=== PATIENT | female | born 2000 | race Caucasian/White ===

== ENCOUNTER 2023-04-21 08:44 | Outpatient (OUT) | payer OTHER, SELFPAY ==
--- NOTE | 2023-04-21 08:46 | US_ITS ---
[facility] [place] [id number] Patient Name: NED TERRAZAS MRN: [id number] date: 2000 Sex: F Assigned Patient Location: Current Patient Location: Accession/Order Number: [id number] Exam Date: 04/21/2023 08:46 Report Date: 04/21/2023 17:11 At the request of: MARAL AYERS Procedure: US pelvis w/ transvaginal EXAMINATION: US pelvis w/ transvaginal HISTORY: PELVIC PAIN COMPARISON: No relevant comparison available. FINDINGS: The uterus is retroverted, retroflexed. The uterus is normal in size, contour and myometrial echotexture measuring 7.6 x 4.4 x 4.4 cm. No focal myometrial mass The endometrium measures 3.0 mm, normal The right ovary is normal measuring 4.0 x 1.3 x 3.4 cm. Normal color and Doppler flow. Multiple peripheral follicles The left ovary is normal measuring 3.1 x 1.7 x 2.5 cm. Normal color and Doppler flow. Multiple peripheral follicles No free fluid US/US pelvis w/ transvaginal IMPRESSION: Multiple bilateral ovarian follicles suggestive of polycystic ovarian morphology. Electronically authenticated by: MARISEL MARIE Date: 04/21/2023 17:11
== END 2023-04-21 08:45 | disposition home or self-care (01) ==
LOC: US 08:45
PROVIDERS: PCP Obstetrics & Gynecology; Visit Provider Obstetrics & Gynecology
DX: R10.2 Pelvic and perineal pain (principal)
CPT/HCPCS: 76830; 76856

== ENCOUNTER 2024-08-20 09:04 | Outpatient (OUT) | payer BC, SELFPAY ==
[2024-08-20 09:47] LABS: Basophils Percent Auto 0.4 % (0.2-2.0); Eosinophils Absolute Auto 0.1 10^3/uL (0.0-0.7); Eosinophils Percent Auto 1.1 % (0.9-7.0); Hematocrit 42.3 % (36.0-48.0); Hemoglobin 13.8 g/dL (12.0-16.0); Immature Granulocytes Abs Auto 0.01 10^3/uL (0.00-0.03); Immature Granulocytes Pct Auto 0.2 % (0.0-0.5); Lymphocytes Absolute Auto 1.8 10^3/uL (1.2-3.8); Lymphocytes Percent Auto 34.2 % (20.5-60.0); Mean Corpuscular HGB Conc 32.6 g/dL (29.9-35.2); Mean Corpuscular Volume 85.8 fL (81.0-99.0); Mean Platelet Volume 10.3 fL (9.5-13.5); Monocytes Absolute Auto 0.3 10^3/uL (0.3-0.8); Monocytes Percent Auto 5.6 % (1.7-12.0); Neutrophils Absolute Auto 3.2 10^3/uL (1.4-6.5); Neutrophils Percent Auto 58.5 % (43.0-75.0); Platelet Count 206 10^3/uL (150-450); Red Blood Count 4.93 10^6/uL (4.20-5.40); Red Cell Distribution Width 12.7 % (11.0-15.0); White Blood Count 5.4 10^3/uL (4.0-11.0)
[2024-08-20 10:11] LABS: Estimated Average Glucose 103 mg/dL; Glycohemoglobin A1C 5.2 % (4.5-6.2)
[2024-08-20 10:21] LABS: Chol HDL Ratio 2.7; Cholesterol 182 mg/dL (<=200); HDL Cholesterol 68 mg/dL (40-60); Thyroid Stimulating Hormone 1.082 uIU/mL (0.358-3.740); Triglycerides 50 mg/dL (<=150)
== END 2024-08-20 09:05 | disposition home or self-care (01) ==
LOC: LAB 09:04
PROVIDERS: PCP Family Medicine; Visit Provider Family Medicine
DX: R00.2 Palpitations (principal); E78.5 Hyperlipidemia, unspecified; R53.83 Other fatigue; R73.09 Other abnormal glucose; D64.9 Anemia, unspecified; E03.9 Hypothyroidism, unspecified
CPT/HCPCS: 36415; 80061; 83036; 83540; 84436; 84443; 84481; 85025

== ENCOUNTER 2024-09-22 19:37 | Outpatient (REF) | payer BC, SELFPAY ==
[2024-09-28 09:18] LABS: Age Gdln ACOG Testing Note (.); IGP, rfx Aptima HPV ASCU Note (.)
== END 2024-09-22 19:38 | disposition home or self-care (01) ==
LOC: LAB 19:37
PROVIDERS: PCP Family Medicine; Visit Provider Obstetrics & Gynecology
DX: Z01.419 Encounter for gynecological examination (general) (routine) without abnormal findings (principal)
CPT/HCPCS: 88175

== ENCOUNTER 2024-12-02 12:10 | Outpatient (OUT) | payer BC, SELFPAY ==
[2024-12-02 12:45] LABS: Basophils Percent Auto 0.5 % (0.2-2.0); Eosinophils Absolute Auto 0.2 10^3/uL (0.0-0.7); Hematocrit 43.7 % (36.0-48.0); Hemoglobin 14.5 g/dL (12.0-16.0); Immature Granulocytes Abs Auto 0.02 10^3/uL (0.00-0.03); Immature Granulocytes Pct Auto 0.3 % (0.0-0.5); Lymphocytes Absolute Auto 2.6 10^3/uL (1.2-3.8); Lymphocytes Percent Auto 35.6 % (20.5-60.0); Mean Corpuscular HGB Conc 33.2 g/dL (29.9-35.2); Mean Corpuscular Hemoglobin 28.1 pg (26.7-34.0); Mean Corpuscular Volume 84.7 fL (81.0-99.0); Mean Platelet Volume 10.2 fL (9.5-13.5); Monocytes Absolute Auto 0.5 10^3/uL (0.3-0.8); Monocytes Percent Auto 6.6 % (1.7-12.0); Neutrophils Absolute Auto 4.1 10^3/uL (1.4-6.5); Platelet Count 206 10^3/uL (150-450); Red Blood Count 5.16 10^6/uL (4.20-5.40); Red Cell Distribution Width 13.2 % (11.0-15.0); White Blood Count 7.4 10^3/uL (4.0-11.0)
[2024-12-02 13:40] LABS: Alanine Aminotransferase 23 U/L (14-59); Albumin Globulin Ratio 1.3; Albumin Level 3.9 g/dL (3.4-5.0); Alkaline Phosphatase 94 U/L (46-116); Anion Gap 10.7; Aspartate Amino Transferase 17 U/L (15-37); BUN Creatinine Ratio 13.3; Carbon Dioxide 30.2 mmol/L (21.0-32.0); Chloride 102 mmol/L (98-107); Estimated GFR (African America >60 (>=60 mL/min/1.73m^2); Estimated GFR (Non-African Ame >60 (>=60 mL/min/1.73m^2); Globulin 2.9 g/dL; Glucose 85 mg/dL (74-106); Potassium 3.9 mmol/L (3.5-5.1); Sodium 139 mmol/L (136-145); Total Protein 6.8 g/dL (6.4-8.2)
[2024-12-02 13:41] LABS: HCG Quantitative <1 mIU/mL
== END 2024-12-02 12:11 | disposition home or self-care (01) ==
PROVIDERS: PCP Family Medicine; Visit Provider Family Medicine
DX: E83.19 Other disorders of iron metabolism (principal); N92.6 Irregular menstruation, unspecified
CPT/HCPCS: 36415; 80053; 82728; 83540; 84702; 85025

== ENCOUNTER 2025-04-25 13:29 | Outpatient (RCR) | payer BC, SELFPAY ==
--- OUTSIDE RECORDS SUMMARY | 2025-04-25 13:00 | XMS_ITS | Encounter Summary ---
Author Organization [facility] Address [address] [place] [address] Care Team Providers Care Product Marketing Analyst Name Role Phone Efrain De Santiago MD Primary Care Provider [phone] Reason for Visit * Reason Comments positive test Encounter Details Date Type Department Care Team (Latest Contact Info) Description 04/25/2025 1:00 PM EDT Clinical Support [facility] [address] [place] [address] [place] [address] examination or test, positive result ([facility]); Positive urine test ([facility]) Social History Tobacco Use Types Packs/Day Years Used Date Smoking Tobacco: Never Alcohol Use Standard Drinks/Week Comments Never 0 (1 standard drink = 0.6 oz pur e alcohol) Comments Unknown Sex and Gender Information Value Date Recorded Sex Assigned at Not on file Legal Sex Female 7:03 PM EDT Gender Identity Not on file Sexual Orientation Not on file documented as of this encounter Last Filed Vital Signs Vital Sign Reading Time Taken Comments Blood Pressure 100/60 04/25/2025 1:05 PM EDT Pulse - - Temperature - - Respiratory Rate - - Oxygen Saturation - - Inhaled Oxygen Concentration - - Weight 52.1 kg (114 lb 12.8 oz) 04/25/2025 1:05 PM EDT Height 152.4 cm (5') 04/25/2025 1:05 PM EDT Body Mass Index 22.42 04/25/2025 1:05 PM EDT documented in this encounter Progress Notes * Jillian Chapin LPN - 04/25/2025 1:00 PM EDT Patient seen in office today for complaints of back pain and positive test. Patient UA was negative only should lueks, test was positive. Patient was give HCG level to have drawn and then repeated in 2 days. Patient already has an intake and ultrasound scheduled in office. Patient was advised to keep appointment as Ultrasound will tell us when due as she does not know last LMP. documented in this encounter Plan of Treatment Upcoming Encounters Date Type Department Care Team (Late st Contact Info) Description 05/12/2025 12:30 PM EDT Ancillary Procedure [facility] [address] [place] [address] 05/12/2025 1:00 PM EDT Initial [facility] [address] [place] [address] 09/27/2025 1:00 PM EST Office Visit [facility] [address] [place] [address] Sergey Tolbert DO [address] [place] [address] Scheduled Orders Name Type Priority Associated Diagnoses Orde r Schedule hCG, quantitative, Lab Routine examination or test, positive result ([facility]) Positive urine test ([facility]) 2 Occurrences starting 04/25/2025 until 04/25/2026 documented as of this encounter Procedures Procedure Name Priority Date/Time Associated Diagnosis Comments POCT , URINE Routine 04/25/2025 1:09 PM EDT examination or test, positive result ([facility]) POCT URINALYSIS DIPSTICK Routine 04/25/2025 1:09 PM EDT examination or test, positive result ([facility]) documented in this encounter Results * (ABNORMAL) POCT urinalysis dipstick manually resulted (04/25/2025 1:09 PM EDT) Color, UA Yellow Clarity, UA Clear Glucose, UA Negative Negative - 2000(110) ++++ mg/dL Bilirubin, UA Negative Negative - 4(70) +++ mg/dL Ketones, UA Negative Negative - 160(16) ++++ mg/dL Spec Grav, UA 1.010 1 - 1.03 Blood, UA Negative Negative - 50 Sheldon/mcL pH, UA 60.0 5 - 9 Protein, UA Negative Negative - 2000(20) ++++ mg/dL Urobilinogen, UA 1.0 0.2 - 12 mg/dL Leukocytes, UA Positive Negative - 500+++ Luis Alberto/mcL Nitrite, UA Negative Negative - Positive Urine 04/25/2025 1:09 PM EDT [facility] Didi DO POINT OF CARE TEST ENTER/EDIT OR DERABLES Final Result * (ABNORMAL) POCT , urine manually resulted (04/25/2025 1:09 PM EDT) Preg Test, Ur Positive Negative Urine 04/25/2025 1:09 PM EDT [facility] Didi DO POINT OF CARE TEST ENTER/EDIT OR DERABLES Final Result documented in this encounter Visit Diagnoses Diagnosis examination or test, positive result ([facility]) examination or test, positive result Positive urine test ([facility]) documented in this encounter Care Teams Product Marketing Analyst Relationship Specialty Start Date End Date Efrain De Santiago MD [address] [place] [address] PCP - General Family Medicine 09/22/24 documented as of this encounter
--- OUTSIDE RECORDS SUMMARY | 2025-04-25 13:33 | XMS_ITS | Encounter Summary ---
Author Organization [facility] Address [address] [place] [address] Care Team Providers Care Mattress Specialist Name Role Phone Efrain De Santiago MD Primary Care Provider [phone] Encounter Details Date Type Department Care Team (Late st Contact Info) Description 10/07/2024 Orders Only [facility] [address] [place] [address] Ninfa Lay MA [address] [place] [address] Social History Tobacco Use Types Packs/Day Years [...] on file documented as of this encounter Plan of Treatment Upcoming Encounters Date Type Department Care Team (Late st Contact Info) Description 05/12/2025 12:30 PM EDT [place] [address] 05/12/2025 1:00 PM EDT Initial [facility] [address] [place] [address] 09/27/2025 1:00 PM EST Office Visit [facility] [address] [facility] [phone] Sergey Tolbert DO [address] [place] [address] [place] [address] documented as of this encounter Procedures Procedure Name Priority Date/Time Associated Diagnosis Comments PAP SMEAR Routine 09/22/2024 12:00 AM EST documented in this encounter Results * Pap Smear (09/22/2024 12:00 AM EST) Swab Cervical swab / Unknown us Sergey Tolbert DO LAB CYTOLOGY ORDERABLES Final Re sult EXTERNAL LAB documented in this encounter Visit Diagnoses Not on filedocumented in this encounter Care Teams Mattress Specialist Relationship Specialty Start Date End Date Efrain De Santiago MD [address] [facility] [place] [address] PCP - General Family Medicine 09/22/24 documented as of this encounter
--- OUTSIDE RECORDS SUMMARY | 2025-04-25 13:33 | XMS_ITS | Encounter Summary ---
Author Organization [facility] Address [address] [place] [address] Care Team Providers Care Cell Pourer Name Role Phone Efrain De Santiago MD Primary Care Provider [phone] Encounter Details Date Type Department Care Team (Late st Contact Info) Description 04/21/2023 Clinisync Result Encounter [facility] External Department Unsolicited Maral Tolbert DO [address] [place] [address] Social History Tobacco Use Types Packs/Day Years Used Date Smoking Tobacco: Never Alcohol Use Standard Drinks/Week Comments Never 0 (1 standard drink = 0.6 oz pur e alcohol) Comments Unknown Sex and Gender Information Value Date Recorded Sex Assigned at Not on file Legal Sex Female 7:03 PM EDT Gender Identity Not on file Sexual Orientation Not on file COVID-19 Exposure Response Date Recorded In the last 10 days, have yo u been in contact with someone who was confirmed or suspected to have Coronavirus/COVID-19? No / Unsure 04/14/2023 9:27 AM EDT documented as of this encounter Plan of Treatment Upcoming Encounters Date Type Department Care Team (Late st Contact Info) Description 05/12/2025 12:30 PM EDT Ancillary Procedure [facility] [address] [place] [phone] 05/12/2025 1:00 PM EDT Initial [facility] [address] [place] [address] 09/27/2025 1:00 PM EST Office Visit [facility] [address] [place] [address] Maral Tolbert DO [address] [facility] [address] [place], [place] [id number] documented as of this encounter Procedures Procedure Name Priority Date/Time Associated Diagnosis Comments US PELVIS W/ TRANSVAGINAL 04/21/2023 5:11 PM EDT documented in this encounter Results * US PELVIS W/ TRANSVAGINAL (04/21/2023 5:11 PM EDT) Anatomical Region Laterality Modality Other 04/21/2023 5:11 PM EDT Narrative 04/21/2023 5:11 PM EDT [address] [address] Ultrasound Report Signed Patient: Ned Terrazas MR#: [id number] : 2000 Acct:[id number] Age/Sex: 22 / F ADM Date: 04/21/23 Loc: US Attending Dr: Maral Tolbert D.O. Ordering Physician: Maral Tolbert D.O. Date of Service: 04/21/23 Procedure(s): US pelvis w/ transvaginal Accession Number(s): [id number] cc: Maral Tolbert D.O. The [address] [address] Patient Name: NED TERRAZAS MRN: [id number] date: 2000 Sex: F Assigned Patient Location: US Current Patient Location: US Accession/Order Number: [id number] Exam Date: 04/21/2023 08:46 Report Date: 04/21/2023 17:11 At the request of: MARAL TOLBERT Procedure: US pelvis w/ transvaginal EXAMINATION: US pelvis w/ transvaginal HISTORY: PELVIC PAIN COMPARISON: No relevant comparison available. FINDINGS: The uterus is retroverted, retroflexed. The uterus is normal in size, contour and myometrial echotexture measuring 7.6 x 4.4 x 4.4 cm. No focal myometrial mass The endometrium measures 3.0 mm, normal The right ovary is normal measuring 4.0 x 1.3 x 3.4 cm. Normal color and Doppler flow. Multiple peripheral follicles The left ovary is normal measuring 3.1 x 1.7 x 2.5 cm. Normal color and Doppler flow. Multiple peripheral follicles No free fluid US/US pelvis w/ transvaginal IMPRESSION: Multiple bilateral ovarian follicles suggestive of polycystic ovarian morphology. Electronically authenticated by: MARISEL MARIE Date: 04/21/2023 17:11 Dictated By: Marisel Marie M.D. Signed By: 04/21/231713 DD/ 10 TD/TT: Respiratory Manager: Procedure Note Radiology, Radiologist, MD - 05/02/2023 [place] [address] Ultrasound Report Signed Patient: Ned Terrazas EMR#: [id number] : 2000Acct:[id number] Age/Sex: 22 / FADM Date: 04/21/23 Loc: US Attending Dr: Maral Tolbert D.O. Ordering Physician: Maral Tolbert D.O. Date of Service: 04/21/23 Procedure(s): US pelvis w/ transvaginal Accession Number(s): [id number] cc: Maral Tolbert D.O. The [address] [address] Patient Name: NED TERRAZAS MRN: [id number] date: 2000 Sex: F Assigned Patient Location: US Current Patient Location: US Accession/Order Number: [id number] Exam Date: 04/21/2023 08:46 Report Date: 04/21/2023 17:11 At the request of: MARAL TOLBERT Procedure: US pelvis w/ transvaginal EXAMINATION: US pelvis w/ transvaginal HISTORY: PELVIC PAIN COMPARISON: No relevant comparison available. FINDINGS: The uterus is retroverted, retroflexed. The uterus is normal in size,contour and myometrial echotexture measuring 7.6 x 4.4 x 4.4 cm. No focalmyometrial mass The endometrium measures 3.0 mm, normal The right ovary is normal measuring 4.0 x 1.3 x 3.4 cm. Normal color and Doppler flow. Multiple peripheral follicles The left ovary is normal measuring 3.1 x 1.7 x 2.5 cm. Normal color and Doppler flow. Multiple peripheral follicles No free fluid US/US pelvis w/ transvaginal IMPRESSION: Multiple bilateral ovarian follicles suggestive of polycystic ovarian morphology. Electronically authenticated by: MARISEL MARIE Date: 04/21/2023 17:11 Dictated By: Marisel Marie M.D. Signed By:04/21/231713 DD/ 10 TD/TT: Respiratory Manager: us Maral Tolbert DO [facility] Final Result documented in this encounter Visit Diagnoses Not on filedocumented in this encounter Care Teams Cell Pourer Relationship Specialty Start Date End Date Efrain De Santiago MD [address] [place] [address] PCP - General Family Medicine 09/22/24 documented as of this encounter
--- OUTSIDE RECORDS SUMMARY | 2025-04-25 13:33 | XMS_ITS | Clinical Summary ---
Author Organization [facility] Healthcare Address [address] [place] [address] Care Team Providers Care Ornamental Iron Erector Name Role Phone Efrain De Santiago MD Primary Care Provider [phone] Allergies No known active allergies Medications norgestimate-et hinyl estradiol (Sprintec 28) 0.25-35 MG-MCG tabletIndicatio ns:Abnormal uterine bleeding (AUB) Take 1 tablet by mouth Daily 28 tablet 11 4 04/25/20 25 Discontinued desvenlafaxine (Pristiq) 50 MG 24 hr tablet TAKE 1 TABLET BY MOUTH EVERY DAY FOR 30 DAYS 5 04/25/20 25 Discontinued Encounters Date Type Department Care Team Description 04/25/2025 1:00 PM EDT Clinical Support [facility] [address] [place] [address] [place] [phone] examination or test, positive result ([facility]); Positive urine test ([facility]) from Last 3 Months Family History Medical History Relation Name Comments Hypertension Father Cancer Mother H/O blood clot Mother No Known Problems Sibling H/O stomach hernia Sister h/o stomach ulcers Sister Relation Name Status Comments Father Alive Mother Alive Sibling Alive Sister Social History Tobacco Use Types Packs/Day Years Used Date Smoking Tobacco: Never Tobacco Cessation:Counseling Given: Not Answered Alcohol Use Standard Drinks/Week Comments Never 0 (1 standard drink = 0.6 oz pur e alcohol) Comments Unknown Sex and Gender Information Value Date Recorded Sex Assigned at Not on file Legal Sex Female 7:03 PM EDT Gender Identity Not on file Sexual Orientation Not on file Last Filed Vital Signs Vital Sign Reading Time Taken Comments Blood Pressure 100/60 04/25/2025 1:05 PM EDT Pulse - - Temperature - - Respiratory Rate - - Oxygen Saturation - - Inhaled Oxygen Concentration - - Weight 52.1 kg (114 lb 12.8 oz) 04/25/2025 1:05 PM EDT Height 152.4 cm (5') 04/25/2025 1:05 PM EDT Body Mass Index 22.42 04/25/2025 1:05 PM EDT Plan of Treatment Upcoming Encounters Date Type Department Care Team (Late st Contact Info) Description 05/12/2025 12:30 PM EDT [place] [phone] 05/12/2025 1:00 [place] [address] 09/27/2025 1:00 PM EST [place] [phone] Sergey Tolbert DO [facility] [address] [address] Procedures Procedure Name Priority Date/Time Associated Diagnosis Comments POCT URINALYSIS DIPSTICK Routine 04/25/2025 1:09 PM EDT examination or test, positive result ([facility]) POCT , URINE Routine 04/25/2025 1:09 PM EDT examination or test, positive result ([facility]) from Last 3 Months Results * (ABNORMAL) POCT , urine manually resulted (04/25/2025 1:09 PM EDT) Preg Test, Ur Positive Negative Urine 04/25/2025 1:[address] [facility] DO POINT OF CARE TEST ENTER/EDIT OR DERABLES Final Result * (ABNORMAL) POCT urinalysis dipstick manually resulted (04/25/2025 1:09 PM EDT) Color, UA Yellow Clarity, UA Clear Glucose, UA Negative Negative - 1999(110) ++++ mg/dL Bilirubin, UA Negative Negative - 4(70) +++ mg/dL Ketones, UA Negative Negative - 160(16) ++++ mg/dL Spec Grav, UA 1.010 1 - 1.03 Blood, UA Negative Negative - 50 Sheldon/mcL pH, UA 60.0 5 - 9 Protein, UA Negative Negative - 1999(20) ++++ mg/dL Urobilinogen, UA 1.0 0.2 - 12 mg/dL Leukocytes, UA Positive Negative - 500+++ Luis Alberto/mcL Nitrite, UA Negative Negative - Positive Urine 04/25/2025 1:09 PM EDT [facility] DO POINT OF CARE TEST ENTER/EDIT OR DERABLES Final Result from Last 3 Months Insurance [facility] Care Teams Ornamental Iron Erector Relationship Specialty Start Date End Date Efrain De Santiago MD [address] [place] [phone] PCP - General Family Medicine 09/22/24
== END 2025-05-11 08:06 | disposition home or self-care (01) ==
LOC: LAB 13:29
PROVIDERS: PCP Family Medicine; Visit Provider Obstetrics & Gynecology
DX: Z51.81 Encounter for therapeutic drug level monitoring (principal); Z32.01 Encounter for pregnancy test, result positive
CPT/HCPCS: 36415; 84702

== ENCOUNTER 2025-05-12 11:53 | Outpatient (OUT) | payer BC, SELFPAY ==
--- NOTE | 2025-05-12 11:56 | US_ITS ---
[place] [id number] Patient Name: NED GARCIA MRN: [id number] date: 2000 Sex: F Assigned Patient Location: US Current Patient Location: US Accession/Order Number: [id number] Exam Date: 05/12/2025 12:00 Report Date: 05/13/2025 13:08 At the request of: MARAL AYERS DO Procedure: US OB transvaginal OB ultrasound. Reason for exam:Positive test. Comparison:None Technique: Transvaginal imaging of the gravid uterus was obtained. Findings: Single live intrauterine measuring 9 weeks 0 days by CRL MICHELLE 12/15/2025. heart rate 176 bpm. No free fluid is seen. Ovaries appear unremarkable. US/US OB transvaginal Impression: Single live intrauterine 9 weeks 0 days by CRL, MICHELLE 12/15/2025. Impression dictated by: John Lassiter Jr. DSebastiánOSebastián 05/13/2025 1:08 PM Dictation Location: [place] [address] Electronically authenticated by: [id number] Date: 05/13/2025 13:08
== END 2025-05-12 11:54 | disposition home or self-care (01) ==
LOC: US 11:53
PROVIDERS: PCP Family Medicine; Visit Provider Obstetrics & Gynecology
DX: Z34.01 Encounter for supervision of normal first pregnancy, first trimester (principal); Z3A.09 9 weeks gestation of pregnancy; N92.6 Irregular menstruation, unspecified
CPT/HCPCS: 36415; 76817; 80307; 83036; 85025; 86592; 86762; 86803; 86850; 86900; 86901; 87086; 87340; 87389

== ENCOUNTER 2025-05-12 13:34 | Outpatient (OUT) | payer BC, SELFPAY ==
--- OUTSIDE RECORDS SUMMARY | 2025-05-12 13:00 | XMS_ITS | Encounter Summary ---
Author Organization [facility] Address [address] [place] [address] Care Team Providers Care Steam Brush Operator Name Role Phone Efrain De Santiago MD Primary Care Provider [phone] Reason for Visit * Reason Comments Amenorrhea Encounter Details Date Type Department Care Team (Late st Contact Info) Description 05/12/2025 1:00 PM EDT Initial [facility] [address] [place] [address] [place] [phone] [place]: 9w0d Social History Tobacco Use Types Packs/Day Years Used Date Smoking Tobacco: Never Alcohol Use Standard Drinks/Week Comments Never 0 (1 standard drink = 0.6 oz pur e alcohol) Estimated Date of Delivery Comme nts Yes 12/15/2025 Based on last me nstrual period of 03/10/2025 Sex and Gender Information Value Date Recorded Sex Assigned at Not on file Legal Sex Female 7:03 PM EDT Gender Identity Not on file Sexual Orientation Not on file documented as of this encounter Last Filed Vital Signs Vital Sign Reading Time Taken Comments Blood Pressure 110/60 05/12/2025 1:15 PM EDT Pulse - - Temperature - - Respiratory Rate - - Oxygen Saturation - - Inhaled Oxygen Concentration - - Weight 53.2 kg (117 lb 3.2 oz) 05/12/2025 1:15 P M EDT Height - - Body Mass Index 22.89 04/25/2025 1:05 PM EDT documented in this encounter Progress Notes * Jillian Chapin, AEROSPACE PROJECT ENGINEER - 05/12/2025 1:00 PM EDT Reason for Appointment: Patient ID: Zayra Gill is a 24 y.o. female who presents for Amenorrhea Patient presents today for a Nurse OB Intake appointment. Patient is 9w0d with a Estimated Date of Delivery: 12/15/25 OB History Para Term AB Living 2 1 1 0 0 1 SAB IAB Ectopic Multiple Live Births 0 0 0 0 1 # Outcome Date GA Lbr Fabian/2nd Weight Sex Type Anes PTL Lv 2 Current 1 Term 07/01/22 8 lb F Vag-Spont DANILO Current Medications: has a current medication list which includes the following prescription(s): metronidazole and mv-min-fe fum-fa-dha. Medical History: Active Ambulatory Problems Diagnosis Date Noted No Active Ambulatory Problems Resolved Ambulatory Problems Diagnosis Date Noted No Resolved Ambulatory Problems Past Medical History: Diagnosis Date ADHD (attention deficit hyperactivity disorder) Marginal placenta previa ([facility]) Family History Problem Relation Name Age of Onset Cancer Mother Other (H/O blood clot) Mother Hypertension Father Other (h/o stomach ulcers) Sister Other (H/O stomach hernia) Sister No Known Problems Sibling Social History Tobacco Use Smoking status: Never Smokeless tobacco: Not on file Substance Use Topics Alcohol use: Never Drug use: Not on file Past Surgical History: Procedure Laterality Date APPENDECTOMY 2013 INNER EAR SURGERY tubes in ears No Known Allergies Vitals: Estimated body mass index is 22.89 kg/m?? as calculated from the following: Height as of 04/25/25: 5'. Weight as of this encounter: 117 lb 3.2 oz. BP: 110/60 Patient's last menstrual period was 03/10/2025. Assessment/Plan Diagnoses and all orders for this visit: Missed menses - Type and screen; Future - ABO/Rh; Future - CBC and differential - Hemoglobin A1c - RPR - Rubella antibody, IgG - Hepatitis B surface antigen - Hepatitis C antibody - HIV-1 and HIV-2 antibodies - Urine culture - POCT , urine manually resulted - POCT urinalysis dipstick manually resulted , unspecified gestational age ([facility]) - Type and screen; Future - ABO/Rh; Future - CBC and differential - Hemoglobin A1c - RPR - Rubella antibody, IgG - Hepatitis B surface antigen - Hepatitis C antibody - HIV-1 and HIV-2 antibodies - Rapid drug screen, urine; Future Encounter for supervision of normal first in first trimester ([facility]) - Rapid drug screen, urine; Future Nurse Note: OB Intake: Patient presents today for first OB visit. Patients history has been reviewed in great detail including any potential risks. Patient signed consent forms and patient desires testing in both trimesters. Patient currently has no complaints and has been advised to drink 6-8 glasses of water a day, eatno raw or undercooked meat, and stay away from [facility]. Patient has also been advised to not change litter boxes and eat 6 small meals a day. Patient has been consulted regarding the do's and don'ts ofpregnancy. Patient was given labs and all questions and concerns were answered. Patient was given [place] to have completed. Follow Up: Patient is to return in 4 weeks for routine OB appointment. Follow Up: Patient is to have labs drawn at directed and return to office for initial OB appointment with provider. Patient may call office as needed with any concerns or questions. Nurse Visit Completed by: Jillian Chapin LPN documented in this encounter Plan of Treatment Upcoming Encounters Date Type Department Care Team (Late st Contact Info) Description 06/14/2025 1:20 PM EST Routine [facility] [address] [place] [phone] Sergey Tolbert DO [address] [place] [address] 09/27/2025 1:00 PM EST Office Visit [facility] [address] [place] [phone] Sergey Tolbert DO [address] [place] [address] Scheduled Orders Name Type Priority Associated Diagnoses Orde r Schedule Type and screen Lab Routine Missed menses , unspecified gestational age ([facility]) Expected: 05/12/2025 (Approximate), Expires: 05/12/2026 ABO/Rh Lab Routine Missed menses , unspecified gestational age ([facility]) Expected: 05/12/2025 (Approximate), Expires: 05/12/2026 CBC and differential Lab Routine Missed menses , unspecified gestational age ([facility]) Ordered: 05/12/2025 Hemoglobin A1c Lab Routine Missed menses , unspecified gestational age ([facility]) Ordered: 05/12/2025 RPR Lab Routine Missed menses , unspecified gestational age ([facility]) Ordered: 05/12/2025 Rubella antibody, IgG Lab Routine Missed menses , unspecified gestational age ([facility]) Ordered: 05/12/2025 Hepatitis B surface antigen Lab Routine Missed menses , unspecified gestational age ([facility]) Ordered: 05/12/2025 Hepatitis C antibody Lab Routine Missed menses , unspecified gestational age ([facility]) Ordered: 05/12/2025 HIV-1 and HIV-2 antibodies Lab Routine Missed menses , unspecified gestational age ([facility]) Ordered: 05/12/2025 Urine culture Microbiology Routine Missed menses Ordered: 05/12/2025 Rapid drug screen, urine Lab Routine , unspecified gestational age ([facility]) Encounter for supervision of normal first in first trimester ([facility]) Expected: 05/12/2025 (Approximate), Expires: 05/12/2026 documented as of this encounter Procedures Procedure Name Priority Date/Time Associated Diagnosis Comments POCT , URINE Routine 05/12/2025 1:03 PM EDT Missed menses POCT URINALYSIS DIPSTICK Routine 05/12/2025 1:02 PM EDT Missed menses documented in this encounter Results * (ABNORMAL) POCT , urine manually resulted (05/12/2025 1:03 PM EDT) Preg Test, Ur Positive Negative Urine 05/12/2025 1:03 PM EDT Sergey Didi DO POINT OF CARE TEST ENTER/EDIT OR DERABLES Final Result * (ABNORMAL) POCT urinalysis dipstick manually resulted (05/12/2025 1:02 PM EDT) Color, UA Yellow Clarity, UA Clear Glucose, UA Negative Negative - 1999(110) ++++ mg/dL Bilirubin, UA Negative Negative - 4(70) +++ mg/dL Ketones, UA Negative Negative - 160(16) ++++ mg/dL Spec Grav, UA 1.010 1 - 1.03 Blood, UA Negative Negative - 50 Sheldon/mcL pH, UA 6.0 5 - 9 Protein, UA Negative Negative - 1999(20) ++++ mg/dL Urobilinogen, UA 1.0 0.2 - 12 mg/dL Leukocytes, UA Positive Negative - 500+++ Luis Alberto/mcL Nitrite, UA Negative Negative - Positive Urine 05/12/2025 1:02 PM EDT Sergey Didi DO POINT OF CARE TEST ENTER/EDIT OR DERABLES Final Result documented in this encounter Visit Diagnoses Diagnosis Missed menses , unspecified gestational age ([facility]) Encounter for supervision of normal first in first trimester ([facility]) documented in this encounter Care Teams Steam Brush Operator Relationship Specialty Start Date End Date Efrain De Santiago MD [address] [place] [phone] PCP - General Family Medicine 09/22/24 documented as of this encounter
--- OUTSIDE RECORDS SUMMARY | 2025-05-12 13:40 | XMS_ITS | Clinical Summary ---
Author Organization [facility] Address [address] [place] [address] Care Team Providers Care Rock Crusher Operator Name Role Phone Efrain De Santiago MD Primary Care Provider [phone] Allergies No known active allergies Medications metroNIDAZOLE (Flagyl) 500 MG tabletIndicati ons:Vaginal discharge Take 1 tablet (500 mg) by mouth in the morning and 1 tablet (500 mg) before bedtime. Do all this for 7 days. Do not drink alcohol while taking this medication. 14 tablet 5 05/17/20 25 Active MV-Min-Fe Fum-FA-DHA ( 1 PO) Take 1 each by mouth Daily Active norgestimate-e thinyl estradiol (Sprintec 28) 0.25-35 MG-MCG tabletIndicati ons:Abnormal uterine bleeding (AUB) Take 1 tablet by mouth Daily 28 tablet 11 4 04/25/20 25 Discontinued desvenlafaxine (Pristiq) 50 MG 24 hr tablet TAKE 1 TABLET BY MOUTH EVERY DAY FOR 30 DAYS 5 04/25/20 25 Discontinued valACYclovir (Valtrex) 500 MG tablet 1 tablet Orally three times daily; Duration: 7 days 5 05/12/20 25 Discontinued Encounters Date Type Department Care Team Description 05/12/2025 1:00 PM EDT Initial [facility] [place] [phone] [place]: 9w0d 05/10/2025 [place] [address] Jolie Lomeli MA 05/07/2025 Travel 04/27/2025 Clinisync Result Encounter [facility] External Department Unsolicited Sergey Tolbert DO 04/25/2025 1:00 PM EDT Clinical Support [facility] [phone] examination or test, positive result ([facility]); Positive urine test ([facility]) 04/25/2025 Clinisync Result Encounter NOM[facility] External Department Unsolicited Sergey Tolbert DO from Last 3 Months Family History Medical [...] oz) 05/12/2025 1:15 P M EDT Height 152.4 cm (5') 04/25/2025 1:05 PM EDT Body Mass Index 22.89 04/25/2025 1:05 PM EDT Plan of Treatment Upcoming Encounters Date Type Department Care Team (Late st Contact Info) Description 06/14/2025 1:20 PM EST Routine [facility] [address] [facility] [place] [phone] Sergey Tolbert [address] [facility] [place] [address] 09/27/2025 1:00 PM EST Office Visit [facility] [address] [facility] [place] [phone] Sergey Tolbert [address] [facility] [place] [address] Procedures Procedure Name Priority Date/Time Associated Diagnosis Comments POCT , URINE Routine 05/12/2025 1:03 PM EDT Missed menses POCT URINALYSIS DIPSTICK Routine 05/12/2025 1:02 PM EDT Missed menses [facility] PREG QUANT HCG Routine 04/27/2025 10 :49 AM EDT [facility] PREG QUANT HCG Routine 04/25/2025 1: 43 PM EDT POCT URINALYSIS DIPSTICK Routine 04/25/2025 1:09 PM EDT examination or test, positive result ([facility]) POCT , URINE Routine 04/25/2025 1:09 PM EDT examination or test, positive result ([facility]) from Last 3 Months Results * (ABNORMAL) POCT , urine manually resulted (05/12/2025 1:03 PM EDT) Only the most recent of2 resultswithin the time period is included. Preg Test, Ur Positive Negative Urine 05/12/2025 1:03 PM EDT Sergey Didi DO POINT OF CARE TEST ENTER/EDIT OR DERABLES Final Result * (ABNORMAL) POCT urinalysis dipstick manually resulted (05/12/2025 1:02 PM EDT) Only the most recent of2 resultswithin the time period is included. Color, UA Yellow Clarity, UA Clear Glucose, [...] TEST ENTER/EDIT OR DERABLES Final Result * [facility] PREG QUANT HCG (04/27/2025 10:49 AM EDT) Only the most recent of2 resultswithin the time period is included. HCG QUANTITATIVE 43,354 mIU/mL TB Comment: 5-50 0.2-1 WEEK 50-500 1-2 WEEKS 100-5,000 2-3 WEEKS 500-10,000 3-4 WEEKS 1,000-50,000 4-5 WEEKS 10,000-100,000 5-6 WEEKS 15,000-200,000 6-8 WEEKS 10,000-100,000 2-3 MONTHS 04/27/2025 10:4 9 AM EDT 04/27/2025 10:51 AM EDT Narrative [facility] - 04/27/2025 11:55 AM EDT Sergey Didi DO CL[facility]IS[facility] Final Result [facility] from Last 3 Months Insurance [employer] Care Teams Rock Crusher Operator Relationship Specialty Start Date End Date Efrain De Santiago MD [address] [place] [phone] PCP - General Family Medicine 09/22/24
--- OUTSIDE RECORDS SUMMARY | 2025-05-12 13:40 | XMS_ITS | Encounter Summary ---
Author Organization [facility] Address [address] [place] [address] Care Team Providers Care Serger Name Role Phone Efrain De Santiago MD Primary Care Provider [phone] Encounter Details Date Type Department Care Team (Latest Contact Info) Description 05/07/2025 Travel Social History Tobacco Use Types Packs/Day Years [...] Description 06/14/2025 1:20 PM EST Routine [facility] [address] [place] [address] Sergey Tolbert, DO [address], [facility] 09/27/2025 1:00 PM EST Office Visit [facility] [address] [place] [address] Sergey Tolbert, DO [address] [place] [address] documented as of this encounter Visit Diagnoses Not on filedocumented in this encounter Care Teams Serger Relationship Specialty Start Date End Date Efrain De Santiago MD [address] [place] [address] PCP - General Family Medicine 09/22/24 documented as of this encounter
--- OUTSIDE RECORDS SUMMARY | 2025-05-12 13:40 | XMS_ITS | Patient Health Record ---
Author Organization [facility] in [place] Address [address] [place] [address] Care Team Providers Care Fire Extinguisher Sprinkler Inspector Name Role Phone Dinh De Santiago Primary Care Provider Allergies Allergen (clinical drug ingredient) Drug/Non Drug Allergy documented on EMR Reaction Allergy Type Onset Date Status sulfamethoxazole / trimethoprim Bactrim Unknown Drug Allergy Active Results Component Value Reference Range Notes FERRITIN Reviewed date:12/02/2024 06:59:38 PM Interpretation: Performing Lab: Notes/Report: [facility] , Ferritin 74.0 8.0-252.0 ng/mL Performing Lab: see note ML - [facility] PREG QUANT HCG Reviewed date:12/02/2024 06:59:38 PM Interpretation: Performing Lab: Notes/Report: [facility] , HCG Quantitative <1 15,000-200,000 6-8 WEEKS 10,000-100,000 2-3 MONTHS 500-10,000 3-4 WEEKS 5-50 0.2-1 WEEK 10,000-100,000 5-6 WEEKS 100-5,000 2-3 WEEKS 1,000-50,000 4-5 WEEKS 50-500 1-2 WEEKS Performing Lab: see note ML - [facility] GLYCOHEMOGLOBIN A1C Reviewed date:08/22/2024 09:45:56 AM Interpretation: Performing Lab: Notes/Report: [facility] , Glycohemoglobin A1C 5.2 4.5-6.2 % ACTION SUGGESTED ADA RECOMMENDED LIMIT 4.0 - 6.0 > 7.0 ADA THERAPEUTIC TARGET < 7.0 Estimated Average Glucose 103 Performing Lab: see note ML - [facility] LB IRON Reviewed date:08/22/2024 09:45:56 AM Interpretation: Performing Lab: Notes/Report: [facility] , Iron 198.0 50.0-170.0 ug/dL Performing Lab: see note ML - [facility] LB LIPID PROFILE Reviewed date:08/22/2024 09:45:56 AM Interpretation: Performing Lab: Notes/Report: [facility] , Triglycerides 50 <=150 mg/dL Cholesterol 182 <=200 mg/dL HDL Cholesterol 68 40-60 mg/dL > or =60 mg/dl - LOW CARDIOVASCULAR RISK <40 mg/dl - HIGH CARDIOVASCULAR RISK LDL Cholesterol Calculated 104.0 130-159 mg/dl BORDERLINE HIGH >190 mg/dl VERY HIGH 160-189 mg/dl HIGH <100 mg/dl OPTIMAL 100-129 mg/dl NEAR OR ABOVE OPTIMAL VLDL CHOLESTEROL 10.0 Chol HDL Ratio 2.7 4.4 - 7.1 AVERAGE RISK 7.1 - 11.0 MODERATE RISK 3.3 - 4.4 LOW RISK >11.0 HIGH RISK Performing Lab: see note ML - [facility] LB T4 Reviewed date:08/22/2024 09:45:56 AM Interpretation: Performing Lab: Notes/Report: [facility] , T4 Thyroxine 11.20 4.80-13.90 ug/dL Performing Lab: see note ML - [facility] LB TSH Reviewed date:08/22/2024 09:45:56 AM Interpretation: Performing Lab: Notes/Report: [facility] , Thyroid Stimulating Hormone 1.082 0.358-3.740 u IU/mL Performing Lab: see note ML - [facility] LB IGP,Aptima HPV,Age Gdln Reviewed date:09/28/2024 08:36:01 PM Interpretation: Performing Lab: Notes/Report: BRUSH-SPATULA CERVIX ENDOCERVIX [facility] , Age Gdln ACOG Testing Note . L-Low Normal,H-High Normal,LL-Alert Low,HH-Alert High FLAG LEGEND: [address] [place] [address] [place] [address] Clinician Provided Cytology Information Verenice Wadsworth MD, Ayaka Godoy ACLEONEL Soheila... 21-29 01 TESTS RESULT FLAG UNITS REF RANGE LAB ---- 01 =[facility] Derek Performed at: ---- <-Panic Low,>-Panic High,A-Abnormal,AA-Critical Abnormal No. of containers..01 ThinPrep Vial Source.............Cervix;En docervix ---- IGP, rfx Aptima HPV ASCU Note . Verenice Wadsworth MD, detection of premalignant and malignant conditions of the Training And Development Officer: Verenice Wadsworth MD, Phone: [phone] L-Low Normal,H-High Normal,LL-Alert Low,HH-Alert High Test Methodology: Note 02 cells (endocervical component) are present. Performed at: =[facility] The Pap smear is a screening test designed to aid in the Satisfactory for evaluation. Endocervical and/or squamous metaplastic <-Panic Low,>-Panic High,A-Abnormal,AA-Critical Abnormal ---- Specimen adequacy: [address] [place] [address] [place], [place] [address] FLAG LEGEND: 02 [facility] CELLULAR CHANGES ASSOCIATED WITH INFLAMMATION ARE PRESENT. This liquid based ThinPrep(R) pap test was screened with Note: Note 02 cancer. Both false-positive and false-negative reports do [address] [place] [phone] DIAGNOSIS: Performed by: 02 result therefore, no HPV testing was performed. ---- NEGATIVE FOR INTRAEPITHELIAL LESION OR MALIGNANCY. occur. The HPV DNA reflex criteria were not met with this specimen Performed at: - [facility] Derek Performed at: . 02 [address] [place] [phone] TESTS RESULT FLAG UNITS REF RANGE LAB should not be used as the sole means of detecting cervical the use of an image guided system. Lissa Lovell, Accounts Payable Processor (ASCP) ---- Training And Development Officer: Verenice Wadsworth MD, Phone: [phone] uterine cervix. It is not a diagnostic procedure and Performing Lab: see note - [facility] LB PROF 14(COMP METB) Reviewed date:12/02/2024 06:59:38 PM Interpretation: Performing Lab: Notes/Report: [facility] , Sodium 139 136-145 mmol/L Potassium 3.9 3.5-5.1 mmol/L Chloride 102 98-107 mmol/L Carbon Dioxide 30.2 21.0-32.0 mmol/L Anion Gap 10.7 Glucose 85 74-106 mg/dL Blood Urea Nitrogen 10.0 7.0-18.0 mg/dL Creatinine 0.75 0.55-1.02 mg/dL Estimated GFR ( Rosa M >60 >=60 mL/min/1.73m 2 Estimated GFR (Non- Lucy >60 >=60 mL/min/1.73m 2 BUN Creatinine Ratio 13.3 Calcium 9.0 8.5-10.1 mg/dL Bilirubin Total 1.0 0.2-1.0 mg/dL Aspartate Amino Transferase 17 15-37 U/L Alanine Aminotransferase 23 14-59 U/L Alkaline Phosphatase 94 46-116 U/L Total Protein 6.8 6.4-8.2 g/dL Albumin Level 3.9 3.4-5.0 g/dL Globulin 2.9 Albumin Globulin Ratio 1.3 Performing Lab: see note ML - [facility] PREG QUANT HCG Reviewed date:04/25/2025 04:10:16 PM Interpretation: Performing Lab: Notes/Report: [facility] , HCG Quantitative 39415 5-50 0.2-1 WEEK 50-500 1-2 WEEKS 15,000-200,000 6-8 WEEKS 1,000-50,000 4-5 WEEKS 10,000-100,000 2-3 MONTHS 10,000-100,000 5-6 WEEKS 100-5,000 2-3 WEEKS 500-10,000 3-4 WEEKS Performing Lab: see note ML - [facility] PREG QUANT HCG Reviewed date:04/27/2025 12:24:24 PM Interpretation: Performing Lab: Notes/Report: [facility] , HCG Quantitative 35198 500-10,000 3-4 WEEKS 50-500 1-2 WEEKS 15,000-200,000 6-8 WEEKS 5-50 0.2-1 WEEK 1,000-50,000 4-5 WEEKS 10,000-100,000 2-3 MONTHS 100-5,000 2-3 WEEKS 10,000-100,000 5-6 WEEKS Performing Lab: see note ML - [facility] IRON Reviewed date:12/02/2024 06:59:38 PM Interpretation: Performing Lab: Notes/Report: [facility] , Iron 115.0 50.0-170.0 ug/dL Performing Lab: see note ML - [facility] LB CBC AUTO DIFF Reviewed date:12/02/2024 01:09:08 PM Interpretation: Performing Lab: Notes/Report: [facility] , White Blood Count 7.4 4.0-11.0 10 3/uL Red Blood Count 5.16 4.20-5.40 10 6/uL Hemoglobin 14.5 12.0-16.0 g/dL Hematocrit 43.7 36.0-48.0 % Mean Corpuscular Volume 84.7 81.0-99.0 fL Mean Corpuscular Hemoglobin 28.1 26.7-34.0 pg Mean Corpuscular HGB Conc 33.2 29.9-35.2 g/dL Red Cell Distribution Width 13.2 11.0-15.0 % Platelet Count 206 150-450 10 3/uL Mean Platelet Volume 10.2 9.5-13.5 fL Neutrophils Percent Auto 55.0 43.0-75.0 % Lymphocytes Percent Auto 35.6 20.5-60.0 % Monocytes Percent Auto 6.6 1.7-12.0 % Eosinophils Percent Auto 2.0 0.9-7.0 % Basophils Percent Auto 0.5 0.2-2.0 % Immature Granulocytes Pct Auto 0.3 0.0-0.5 % Neutrophils Absolute Auto 4.1 1.4-6.5 10 3/uL Lymphocytes Absolute Auto 2.6 1.2-3.8 10 3/uL Monocytes Absolute Auto 0.5 0.3-0.8 10 3/uL Eosinophils Absolute Auto 0.2 0.0-0.7 10 3/uL Basophils Absolute Auto 0.0 0.0-0.1 10 3/uL Immature Granulocytes Abs Auto 0.02 0.00-0.03 10 3/uL Performing Lab: see note ML - [facility] FREE T3 Reviewed date:08/22/2024 09:45:56 AM Interpretation: Performing Lab: Notes/Report: [facility] , Free T3 2.50 2.18-3.98 pg/mL Performing Lab: see note ML - [facility] CBC AUTO DIFF Reviewed date:08/22/2024 09:45:56 AM Interpretation: Performing Lab: Notes/Report: [facility] , White Blood Count 5.4 4.0-11.0 10 3/uL Red Blood Count 4.93 4.20-5.40 10 6/uL Hemoglobin 13.8 12.0-16.0 g/dL Hematocrit 42.3 36.0-48.0 % Mean Corpuscular Volume 85.8 81.0-99.0 fL Mean Corpuscular Hemoglobin 28.0 26.7-34.0 pg Mean Corpuscular HGB Conc 32.6 29.9-35.2 g/dL Red Cell Distribution Width 12.7 11.0-15.0 % Platelet Count 206 150-450 10 3/uL Mean Platelet Volume 10.3 9.5-13.5 fL Neutrophils Percent Auto 58.5 43.0-75.0 % Lymphocytes Percent Auto 34.2 20.5-60.0 % Monocytes Percent Auto 5.6 1.7-12.0 % Eosinophils Percent Auto 1.1 0.9-7.0 % Basophils Percent Auto 0.4 0.2-2.0 % Immature Granulocytes Pct Auto 0.2 0.0-0.5 % Neutrophils Absolute Auto 3.2 1.4-6.5 10 3/uL Lymphocytes Absolute Auto 1.8 1.2-3.8 10 3/uL Monocytes Absolute Auto 0.3 0.3-0.8 10 3/uL Eosinophils Absolute Auto 0.1 0.0-0.7 10 3/uL Basophils Absolute Auto 0.0 0.0-0.1 10 3/uL Immature Granulocytes Abs Auto 0.01 0.00-0.03 10 3/uL Performing Lab: see note ML - [facility] Reason For Referral No Information Medications Medication SIG (Take, Route, Fr equency, Duration) Notes Start Date End Date Status Zovirax 5 % 1 application Hotel Or Motel Cleaning Supervisor ally QID; Duration: 30 days 12/03/2024 Active Pristiq 50 MG 1 tablet Orally Once a day; Duration: 30 days 08/18/2024 Active valACYclovir HCl 500 MG 1 tablet Orally three times daily; Duration: 7 days 12/03/2024 Active Social History Tobacco Use: Social History Observation Description Date Details (start date - stop date) Current Smoker 04/19/2020 - NA Tobacco Control (Standard) Question Answer Notes Tobacco use: Current smoker When did you start smoking? 04/19/2020 AUDIT-C (Standard) Question Answer Notes Did you have a drink contain ing alcohol in the past year? Yes How often did you have six o r more drinks on one occasion in the past year? Never (0 point) How many drinks did you have on a typical day when you were drinking in the past year? 1 or 2 drinks (0 point) How often did you have a dri nk containing alcohol in the past year? Never (0 point) Points 0 Interpretation Negative Problems Problem Type SNOMED Code ICD Code Onset Dates Problem Status W/U Status Risk Notes Problem Palpitations (24396085) Palpitation (R00.2) Active confirmed Problem Ankle sprain (53719141) Ankle sprain (S93.409A) Active confirmed Problem Iron excess (55821181) Iron excess (E83.19) Active confirmed Vital Signs Blood pressure diastolic 62 mm Hg 12/02/2024 Height 60 in 12/02/2024 Blood pressure systolic 110 mm Hg 12/02/2024 Weight 117.6 lbs 12/02/2024 BMI 22.96 kg/m2 12/02/2024 Encounters Encounter Location Date Provider Diagnosis [address] [address] 12/02/2024 Dinh Hoy Ankle sprain S93.409 A and Iron excess E83.[address] [address] 08/18/2024 Dinh Hoy Palpitation R00.[address] [address] 08/12/2024 Dinh Hoy Acute UTI N39.[address] [address] 08/17/2024 Dinh Hoy [address] [address] 08/22/2024 Dinh Hoy Iron excess E83.[address] [address] 12/02/2024 Dinh Hoy [address] [address] 12/03/2024 Dinh Hoy Assessments Encounter Date Diagnosis (ICD Code) Assessment Notes Treatment Notes Treatment Clinical Notes Section Notes 08/18/2024 Palpitation (ICD-10 - R00.2) 12/02/2024 Ankle sprain (ICD-10 - S93.409A) 12/02/2024 Iron excess (ICD-10 - E83.19) 08/12/2024 Acute UTI (ICD-10 - N39.0) 08/22/2024 Iron excess (ICD-10 - E83.19) Plan Of Treatment Pending Test Test Name Order Date HEMOGLOBIN A1C (GLYCO) 08/18/2024 IRON, TOTAL 08/18/2024 IRON, TOTAL 12/02/2024 LIPID PANEL (CHOL/TRIG/HDL/LDL) 08/18/19 25 CBC WITH DIFF 08/18/2024 CBC AUTO DIFF 08/22/2024 FERRITIN 08/22/2024 IRON 08/22/2024 THYROID PANEL (T4/TSH/FREE T3) 5 CMP (COMP MET ANDINO) w/eGFR CKD-EPI 2024 CBC WITH DIFF 12/02/2024 Insurance Providers Payer Name Payer Address Payer Phone Subscriber Number Group Number Insured Name Patient Relationship to Insured Coverage Start Date Coverage End Date BCBS [employer] [address] [place] [phone] [id number] Tomas Gill Spouse - patient is the spouse of the insured 4 Medical (General) History Surgical History Surgery Date(Month/Year) Quinlan Teeth Appendectomy Tubes
--- OUTSIDE RECORDS SUMMARY | 2025-05-12 13:40 | XMS_ITS | Encounter Summary ---
Author Organization [facility] Address [address] [place] [address] Care Team Providers Care Catering Administrative Assistant Name Role Phone Efrain De Santiago MD Primary Care Provider [phone] Encounter Details Date Type Department Care Team (Late st Contact Info) Description 05/10/2025 Telephone [facility] [address] [place] [address] [place] [phone] Jolie Lomeli MA Social History Tobacco Use Types Packs/Day Years [...] on file documented as of this encounter Miscellaneous Notes * Telephone Encounter - Jolie Lomeli MA - 05/10/2025 9:59 AM EDT Pt called in with possible BV infection. Pt c/o green discharge only when wiping. Pt denies any itching, irritation, or odor. Pharmacy confirmed, flagyl sent. PVU documented in this encounter Plan of Treatment Upcoming Encounters Date Type Department Care Team (Late st Contact Info) Description 06/14/2025 1:20 PM EST Routine [facility] [address] [facility] [place] [phone] Sergey Tolbert, DO [address] [facility] [place] [address] 09/27/2025 1:00 PM EST Office Visit [facility] [address] [facility] [place] [address] Sergey Tolbert, DO [address] [facility] [place] [address] documented as of this encounter Visit Diagnoses Diagnosis Vaginal discharge Leukorrhea, not specified as infective documented in this encounter Care Teams Catering Administrative Assistant Relationship Specialty Start Date End Date Efrain De Santiago MD [address] [facility] [place] [address] PCP - General Family Medicine 09/22/24 documented as of this encounter
--- OUTSIDE RECORDS SUMMARY | 2025-05-12 13:40 | XMS_ITS | Encounter Summary ---
Author Organization [facility] Address [address] [place] [address] Care Team Providers Care Knitted Cloth Examiner Name Role Phone Efrain De Santiago MD Primary Care Provider [phone] Encounter Details Date Type Department Care Team (Late st Contact Info) Description 04/21/2023 Clinisync Result Encounter [facility] External Department Unsolicited Maral Tolbert DO [address] [place] [address] Social History Tobacco Use Types Packs/Day Years [...] 06/14/2025 1:20 PM EST Routine [facility] [address] [place] [address] Maral Tolbert DO [address] [place] [address] Dr Amrit Sam Piero, [facility] 09/27/2025 1:00 PM EST Office Visit [facility] [address] [facility] [place] [phone] Maral Tolbert DO [address] [facility] [address] Amrit Sam Piero, [place] [address] documented as of this encounter Procedures Procedure Name Priority Date/Time Associated Diagnosis Comments US PELVIS W/ TRANSVAGINAL 04/21/2023 5:11 PM EDT documented in this encounter Results * US PELVIS W/ TRANSVAGINAL (04/21/2023 5:11 PM EDT) Anatomical Region Laterality Modality Other 04/21/2023 5:11 PM EDT Narrative 04/21/2023 5:11 PM EDT [address] [address] Ultrasound Report Signed Patient: Ned Terrazas MR#: [id number] : 2000 Acct:[id number] Age/Sex: 22 / F ADM Date: 04/21/23 Loc: US Attending Dr: Maral Tolbert D.O. Ordering Physician: Maral Tolbert D.O. Date of Service: 04/21/23 Procedure(s): US pelvis w/ transvaginal Accession Number(s): [id number] cc: Maral Tolbert D.O. The [address] [address] Patient Name: NED TERRAZAS MRN: [id number] date: 2000 Sex: F Assigned Patient Location: US Current Patient Location: US Accession/Order Number: [id number] Exam Date: 04/21/2023 08:46 Report Date: 04/21/2023 [...] M.D. Signed By: 04/21/231713 DD/ 10 TD/TT: Director Medical Safety: Procedure Note Radiology, Radiologist, MD - 05/02/2023 [place] [address] Ultrasound Report Signed Patient: Ned Terrazas EMR#: [id number] : 2000Acct:[id number] Age/Sex: 22 / FADM Date: 04/21/23 Loc: US Attending Dr: Maral Tolbert D.O. Ordering Physician: Maral Tolbert D.O. Date of Service: 04/21/23 Procedure(s): US pelvis w/ transvaginal Accession Number(s): [id number] cc: Maral Tolbert D.O. The [address] [address] Patient Name: NED TERRAZAS MRN: [id number] date: 2000 Sex: F Assigned Patient Location: US Current Patient Location: US Accession/Order Number: [id number] Exam Date: 04/21/2023 08:46 Report Date: 04/21/2023 [...] Marie M.D. Signed By:04/21/231713 DD/ 10 TD/TT: Director Medical Safety: us Maral Tolbert DO [facility] Final Result documented in this encounter Visit Diagnoses Not on filedocumented in this encounter Care Teams Knitted Cloth Examiner Relationship Specialty Start Date End Date Efrain De Santiago MD [address] [place] [address] PCP - General Family Medicine 09/22/24 documented as of this encounter
--- OUTSIDE RECORDS SUMMARY | 2025-05-12 13:40 | XMS_ITS | Encounter Summary ---
Author Organization [facility] Address [address] [place] [address] Care Team Providers Care Separator Operator Shellfish Meats Name Role Phone Efrain De Santiago MD Primary Care Provider [phone] Encounter Details Date Type Department Care Team (Late st Contact Info) Description 10/07/2024 Orders Only [facility] [address] [place] [phone] Ninf[place] [address] [place] [address] Social History Tobacco Use Types Packs/Day Years [...] 1:20 PM EST Routine [facility] [address] [place] [phone] Sergey Tolbert DO [address] [place], [place] [id number] 09/27/2025 1:00 PM EST Office Visit [facility] [address] [facility] [place] [phone] Sergey Tolbert DO [address] [facility] [place] [address] documented as of this encounter Procedures Procedure Name Priority Date/Time Associated Diagnosis Comments PAP SMEAR Routine 09/22/2024 12:00 AM EST documented in this encounter Results * Pap Smear (09/22/2024 12:00 AM EST) Swab Cervical swab / Unknown us Sergey Tolbert DO LAB CYTOLOGY ORDERABLES Final Re sult EXTERNAL LAB documented in this encounter Visit Diagnoses Not on filedocumented in this encounter Care Teams Separator Operator Shellfish Meats Relationship Specialty Start Date End Date Efrain De Santiago MD [address] [facility] [place] [address] PCP - General Family Medicine 09/22/24 documented as of this encounter
[2025-05-12 15:05] LABS: Hematocrit 40.2 % (36.0-48.0); Hemoglobin 13.7 g/dL (12.0-16.0); Immature Granulocytes Abs Auto 0.02 10^3/uL (0.00-0.03); Immature Granulocytes Pct Auto 0.2 % (0.0-0.5); Lymphocytes Absolute Auto 2.0 10^3/uL (1.2-3.8); Mean Corpuscular HGB Conc 34.1 g/dL (29.9-35.2); Mean Corpuscular Hemoglobin 28.2 pg (26.7-34.0); Mean Corpuscular Volume 82.7 fL (81.0-99.0); Platelet Count 211 10^3/uL (150-450); Red Blood Count 4.86 10^6/uL (4.20-5.40); White Blood Count 9.3 10^3/uL (4.0-11.0)
[2025-05-12 15:12] LABS: Cannabinoid Screen Urine NEGATIVE (NEGATIVE); Methamphetamines Screen Urine NEGATIVE (NEGATIVE); Tricyclic Antidepressant Urine NEGATIVE (NEGATIVE)
[2025-05-13 06:08] LABS: Rubella Antibodies, IgG 1.39 index (Immune >0.99)
[2025-05-13 12:09] LABS: Rapid Plasma Reagin, Quant Non Reactive titer (NonRea<1:1)
== END 2025-05-12 13:35 | disposition home or self-care (01) ==
LOC: LAB 13:38
PROVIDERS: PCP Family Medicine; Visit Provider Obstetrics & Gynecology
DX: Z34.01 Encounter for supervision of normal first pregnancy, first trimester (principal); N92.6 Irregular menstruation, unspecified
CPT/HCPCS: 36415; 80307; 83036; 85025; 86592; 86762; 86803; 86850; 86900; 86901; 87086; 87340; 87389

== ENCOUNTER 2025-07-15 09:54 | Outpatient (OUT) | payer BC, SELFPAY | END 2025-07-15 09:55 | disposition home or self-care (01) | LOC: LAB 09:54 | PROVIDERS: PCP Family Medicine; Visit Provider Obstetrics & Gynecology | DX: Z36.1 Encounter for antenatal screening for raised alphafetoprotein level (principal) | CPT/HCPCS: 36415; 82105 ==